=== PATIENT | female | born 1970 | race Hispanic/Latino ===

== ENCOUNTER 2017-03-04 10:56 | Emergency (ER) | payer BC ==
--- NOTE | 2017-03-04 11:36 | C.PDOC ---
History Of Present Illness <ClausAnagabriela - Last Filed: 03/05/17 06:18> <LázarobryanjudithEric - Last Filed: 03/05/17 18:02> 46-year-old female, presents to the emergency department with complaints of paranoia. Patient states someone is spying on her. Denies any physical complaints at this time. (Eric Zapata) <DebbyedmundoAnagabriela - Last Filed: 03/05/17 06:18> History Per: Patient History/Exam Limitations: no limitations Onset/Duration Of Symptoms: Days Current Symptoms Are (Timing): Still Present <Eric Zapata - Last Filed: 03/05/17 18:02> Time Seen by Provider: 03/04/17 11:22 Chief Complaint (Nursing): Psychiatric Evaluation Past Medical History Reviewed: Historical Data, Nursing Documentation, Vital Signs - Medical History PMH: Denies: Diabetes, Hepatitis, HIV, HTN, Seizures, Sexually Transmitted Disease Family History: States: No Known Family Hx - Social History Hx Alcohol Use: Yes Hx Substance Use: No - Immunization History Hx Tetanus Toxoid Vaccination: No Hx Influenza Vaccination: No Hx Pneumococcal Vaccination: No <Eric Zapata - Last Filed: 03/05/17 18:02> Vital Signs: Last Vital Signs Temp 98.0 F 03/05/17 11:23 Pulse 70 03/05/17 16:30 Resp 18 03/05/17 16:30 BP 102/62 03/05/17 16:30 Pulse Ox 99 03/05/17 16:30 Review Of Systems Constitutional: Negative for: Fever Cardiovascular: Negative for: Chest Pain, Palpitations Respiratory: Negative for: Shortness of Breath Psych: Negative for: Suicidal ideation <Eric Zapata - Last Filed: 03/05/17 18:02> Physical Exam - Physical Exam Appears: Non-toxic, No Acute Distress, Other (calm. cooperative. bizarre affect) Skin: Warm, Dry, No Rash Head: Atraumatic, Normacephalic Eye(s): bilateral: Normal Inspection Oral Mucosa: Moist Lips: Normal Appearing Neck: Normal ROM Respiratory: No Accessory Muscle Use Extremity: Normal ROM <Eric Zapata - Last Filed: 03/05/17 18:02> ED Course And Treatment - Laboratory Results Result Diagrams: 03/04/17 11:50 03/04/17 11:50 <Alireza Devlin - Last Filed: 03/05/17 06:18> - Laboratory Results Result Diagrams: 03/04/17 11:50 03/04/17 11:50 O2 Sat by Pulse Oximetry: 98 Pulse Ox Interpretation: Normal - CT Scan/US CT HEAD Other Rad Studies (CT/US): Read By Radiologist, Radiology Report Reviewed CT/US Interpretation: IMPRESSION: No acute intracranial pathology identified. <Eric Zapata - Last Filed: 03/05/17 18:02> Medical Decision Making <Alireza Devlin - Last Filed: 03/05/17 06:18> <Eric Zapata - Last Filed: 03/05/17 18:02> Medical Decision Making: medically cleared. pending [facility] screen [id number] Patient is agitated, i was called to bedside, Code boogie called over head. Patient is screaming. Ativan and Haldol ordered 700: pt endorsed to warehouse supervisor 3rd shift penidng [facility] screener 03/05 600pm: transport team arrived pt in nad. (Eric Zapata) ED OBSERVATION Date of observation admission: 03/05/17 Time of observation admission: 01:13 <Alireza Devlin - Last Filed: 03/05/17 06:18> <Eric Zapata - Last Filed: 03/05/17 18:02> - Progress Note Progress Note: 03/05/17 01:13 vitals stable,awaiting [facility] bed 03/05/17 01:13 (Alireza Devlin) Disposition Counseled Patient/Family Regarding: Studies Performed, Diagnosis - Disposition Disposition Time: 07:00 <Alireza Devlin - Last Filed: 03/05/17 06:18> <Eric Zapata - Last Filed: 03/05/17 18:02> - Disposition Disposition: Trans to Other Acute Care Hosp Condition: FAIR Forms: [facility] (Kazakh) - Clinical Impression Clinical Impression: Psychosis <Alireza Devlin - Last Filed: 03/05/17 06:18> - Scribe Statement The provider has reviewed the documentation as recorded by the Scribe (Dayan Chatterjee) <Eric Zapata - Last Filed: 03/05/17 18:02> - Scribe Statement All medical record entries made by the Scribe were at my direction and personally dictated by me. I have reviewed the chart and agree that the record accurately reflects my personal performance of the history, physical exam, medical decision making, and the department course for this patient. I have also personally directed, reviewed, and agree with the discharge instructions and disposition. (Eric Zapata) Physician Patient Turnover Patient Signed Over To: Eric Zapata Handoff Comments: pending [facility] screeners <Alireza Devlin - Last Filed: 03/05/17 06:18>
[2017-03-04 11:57] LABS: BASO # 0.1 K/uL (0.0-0.2); BASO % 1.5 % (0.0-2.0); EOS # 0.2 K/uL (0.0-0.7); EOS % 3.5 % (0.0-4.0); HEMATOCRIT 39.9 % (34.0-47.0); LYMPH # 1.7 K/uL (1.0-4.3); MEAN CELL VOLUME 96.8 fL (81.0-99.0); MEAN CORPUSCULAR HEMOGLOBIN 32.6 pg (27.0-31.0); MEAN CORPUSCULAR HGB CONC 33.6 g/dL (33.0-37.0); MONO # 0.6 K/uL (0.0-0.8); MONO % 8.9 % (0.0-10.0); RED CELL DISTRIBUTION WIDTH 13.2 % (11.5-14.5); WHITE BLOOD COUNT 6.7 K/uL (4.8-10.8)
[2017-03-04 12:06] LABS: CHLORIDE 104 mmol/L (98-107); SODIUM 143 mmol/L (132-148)
[2017-03-04 12:08] LABS: AST/SGOT 18 U/L (14-36); BILIRUBIN,TOTAL 0.6 mg/dL (0.2-1.3); CARBON DIOXIDE 24 mmol/L (22-30); GFR AFRICAN-AMERICAN > 60
[2017-03-04 12:09] LABS: ALB/GLOB RATIO 1.4 (1.0-2.1); ALCOHOL SERUM < 10 mg/dl (0-10); ALKALINE PHOSPHATASE 49 U/L (38-126); ALT/SGPT 21 U/L (9-52); BLOOD UREA NITROGEN 8 mg/dL (7-17); CALCIUM 8.9 mg/dl (8.6-10.4); GLUCOSE,RANDOM 77 mg/dL (65-105); RBC URINE 12 /hpf (0-3); TOTAL PROTEIN 6.8 g/dL (6.3-8.3); URINE BACTERIA RARE (<OCC); URINE BILIRUBIN NEGATIVE (NEGATIVE); URINE BLOOD 3+ (NEGATIVE); URINE COLOR Yellow (YELLOW); URINE GLUCOSE (UA) NORMAL (Normal); URINE KETONE TRACE mg/dL (NEGATIVE); URINE LEUKOCYTE ESTERASE 1+ Leu/uL (Negative); URINE PROTEIN NEGATIVE (NEGATIVE); URINE UROBILINOGEN NORMAL mg/dL (0.2-1.0); WBC URINE 18 /hpf (0-5)
--- NOTE | 2017-03-04 13:04 | CT ---
PROCEDURE: CT HEAD WITHOUT CONTRAST. HISTORY: ams COMPARISON: None available. TECHNIQUE: Axial computed tomography images were obtained through the head/brain without intravenous contrast. Radiation dose: Total exam DLP = 925.58 mGy-cm. This CT exam was performed using one or more of the following dose reduction techniques: Automated exposure control, adjustment of the mA and/or kV according to patient size, and/or use of iterative reconstruction technique. FINDINGS: HEMORRHAGE: No intracranial hemorrhage. BRAIN: No mass effect or edema. No atrophy or chronic microvascular ischemic changes.Please note that MRI with diffusion imaging is more sensitive in the detection of acute ischemic event. VENTRICLES: Asymmetry of the posterior horn right lateral ventricle which appears effaced as compared to the left. No evidence of surrounding edema or mass. 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 CALVARIUM: Unremarkable. PARANASAL SINUSES: Unremarkable as visualized. No significant inflammatory changes. MASTOID AIR CELLS: Unremarkable as visualized. No inflammatory changes. OTHER FINDINGS: None. IMPRESSION: No acute intracranial pathology identified. Asymmetry of the posterior horn right lateral ventricle which appears effaced as compared to the left. No evidence of surrounding edema or mass. 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 Correlate clinically.
[2017-03-05 11:24] VITALS: RESP 18; TEMP 98
--- NOTE | 2017-03-05 11:48 | PCM.PSYCH ---
Initial Psychiatric Evaluation - Initial Psychiatric Evaluation Type of Admission: Voluntary Legal Status: Capacity Chief Complaint (in patient's own words): 'There have watching me through lasers and microchips.' History of Present Illness and Precipitating Events: This is a 46 year old, CF, who was presented to ED by the police due to bizzare behavior and paranoid thoughts. As per the ED note, upon intial contact, pt asked to wait until she turned off her phone, then she packed her phone into a bag, then placed it in the hallway. Pt then stated that her phone can still be tracked even when it's turned off. Pt states that approx 4 months ago, someone began watching her. Pt stated that someone has been tracking her social media activity and has been using the information to ruin her life. Patient was seen and evaluated today. Patient remained disorganized and internally preoccupied throughout the interview. Pt states that there are security cameras in her house and someone is watching her by throwing lasers in the house and through microchips. Pt states that this is ruining her life. 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 Pt states that her coworkers and students started following her and started monitoring her movements. Pt states that she has contacted the police and a private sector executive to look into her problems, but to no avail. Pt states, "I can't take this anymore." Pt states that yesterday she became increasingly depressed and irritable and started yelling and cursing when someone called the police and they brought me over here. She has no psychiatric history, stating, "I'm not fucking bonkers." Pt states that she's been having panic attack and "fits of rage." Pt presents with rapid speech, tangential thoughts. Pt is tearful, anxious, and at times angry and was observed to started hitting her fists on the bed while describing her complaints. past medical history None reported Current Medications: Active Medications Generic Name Dose Route Start Last Admin Trade Name Freq PRN Reason Stop Dose Admin Diphenhydramine HCl 50 mg 03/04/17 13:57 Benadryl PO Q6 PRN Extra Pyramidal Symptoms Haloperidol 5 mg 03/04/17 13:57 Haldol PO Q4 PRN Moderate Agitation Haloperidol Lactate 5 mg 03/04/17 13:57 Haldol IM Q4 PRN Moderate Agitation Lorazepam 1 mg 03/04/17 13:57 03/04/17 21:09 Ativan IM 1 mg Q4 PRN Administration Agitation Lorazepam 1 mg 03/04/17 13:57 Ativan PO Q4 PRN Severe Agitation Trazodone HCl 50 mg 03/04/17 22:00 03/04/17 23:00 Desyrel PO Not Given HS BRIAN Past Psychiatric History - Past Psychiatric History Previous Treatment History: None Pertinent Medical Hx (Current Medical&Sleep Prob, Allergies): Allergies Allergy/AdvReac Type Severity Reaction Status Date / Time No Known Allergies Allergy Verified 02/02/17 15:25 Vitamin D3 1 cap PO DAILY 03/04/17 Review of Systems - Review of Systems All systems: reviewed and no additional remarkable complaints except - Psychiatric Psychiatric: Anxiety, Irritability, Paranoia Mental Status Examination - Personal Presentation Personal Presentation: Looks stated age - Affect Affect: Broad, Other (labile) - Motor Activity Motor Activity: Psychomotor Agitation - Reliability in Providing Information Reliability in Providing Information: Poor, due to alteration in thoughts, Poor , due to altered mood - Speech Speech: Disorganized - Mood Mood: Anxious - Formal Thought Process Formal Thought Process: Delusions, Paranoia, Loosening of associations, Flight of ideas, Circumstantial - Hallucinations/Delusions Delusions: Persecution - Obsessions/Compulsions Obsessions: No Compulsions: No - Cognitive Functions Orientation: Person, Place, Situation, Time Sensorium: Alert Attention/Concentration: Attentive Abstract Thinking: [place] Estimate of Intelligence: Below average Judgement: Imparied, as evidence by: Poor judgement, Imparied, as evidence by: Lack of insight into illness - Risk Risk: Diminished functioning - Strength & Assets Inventory Strength & Assets Inventory: Education - Limitations Limitations: Living alone DSM 5 DX - DSM 5 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 - Smoking Cessation Smoking Cessation Initiated: No
[2017-03-05 17:13] VITALS: BP 102/62; PULSE 70
[2017-03-05 18:02] VITALS: O2SAT 98
== END 2017-03-05 16:40 | disposition short-term general hospital (02) ==
LOC: C.ER 10:56
DX: F28 Other psychotic disorder not due to a substance or known physiological condition (principal)
CPT/HCPCS: 70450; 80053; 81001; 84702; 84703; 85025; 96372; 99285; G0480; J2060